=== PATIENT | female | born 2000 | race Hispanic/Latino ===

== ENCOUNTER 2020-11-03 11:51 | Emergency (ER) | payer MEDICAID, OTHER ==
[2020-11-03] MEDS ORDERED: Ibuprofen 200 MG TAB ONE (12:18)
== END 2020-11-03 12:19 | disposition home or self-care (01) ==
LOC: CSHERS 11:51
DX: R11.2 Nausea with vomiting, unspecified (principal); R51.9 Headache, unspecified
CPT/HCPCS: 99283

== ENCOUNTER 2021-06-30 03:15 | Emergency (ER) | payer OTHER, MEDICAID ==
[2021-06-30 04:03] LABS: Pregnancy Test - Urine (BHCG) Negative (Negative)
[2021-06-30 04:06] LABS: Clarity Cloudy (Clear); Glucose, Urine (Dipstick) Normal (Negative); Ketone, Urine Negative (Negative); Nitrite Positive (Negative); Pregu Control Background? CLEAR/WHITE (CLR/WHITE); Pregu Control Bar Appear? YES (CONTROL BAR); Specific Gravity 1.025 (1.002-1.036); Specific Gravity, Urine 1.025 (1.002-1.036)
[2021-06-30 04:08] LABS: Bilirubin Unable to Interpret (Negative); Leukocyte Unable to Interpret (Negative); Protein, Urine (Dipstick) Unable to Interpret mg/dl (Neg-Trace); Urobilinogen UNABLE TO INTERPRET mg/dL (Less than 2)
[2021-06-30 04:09] LABS: Blood, Urine Unable to Interpret (Negative)
[2021-06-30 04:18] LABS: Bacteria/HPF 2+ HPF (None Seen); Squamous Epithelial 21-50 HPF (0-3); WBC/HPF Greater than 50 HPF (0-3)
== END 2021-06-30 03:57 | disposition home or self-care (01) ==
LOC: CSHERS 03:15
DX: R30.0 Dysuria (principal)
CPT/HCPCS: 81003; 81015; 81025; 99283

== ENCOUNTER 2021-07-17 16:54 | Emergency (ER) | payer MEDICAID, OTHER ==
[2021-07-17 18:44] LABS: Syphilis Antibody Index 18.81 S/CO (<1.00 Non-Reactive)
[2021-07-17 18:59] LABS: Syphilis Antibody REACTIVE (Nonreactive)
[2021-07-17] MEDS ORDERED: Bicillin LA 1.2 MILLION UNITS/2 ML SYRINGE ONE (19:01)
== END 2021-07-17 19:30 | disposition home or self-care (01) ==
LOC: CSHERS 16:54
DX: Z20.2 Contact with and (suspected) exposure to infections with a predominantly sexual mode of transmission (principal)
CPT/HCPCS: 86593; 86780; 96372; 99283; J0561

== ENCOUNTER 2021-08-03 04:12 | Emergency (ER) | payer OTHER | END 2021-08-03 05:19 | disposition home or self-care (01) | LOC: CSHERS 04:12 | DX: Z00.00 Encounter for general adult medical examination without abnormal findings (principal) | CPT/HCPCS: 99281 ==

== ENCOUNTER 2021-08-21 20:51 | Emergency (ER) | payer OTHER | END 2021-08-22 00:10 | disposition left against medical advice (07) | LOC: CSHERS 20:51 | DX: Z53.21 Procedure and treatment not carried out due to patient leaving prior to being seen by health care provider (principal) ==

== ENCOUNTER 2021-08-22 16:08 | Emergency (ER) | payer OTHER ==
[2021-08-22 18:15] LABS: Pregnancy Test - Urine (BHCG) POSITIVE (Negative)
[2021-08-22 18:16] LABS: Pregu Control Background? CLEAR/WHITE (CLR/WHITE); Pregu Control Bar Appear? YES (CONTROL BAR)
== END 2021-08-22 18:41 | disposition home or self-care (01) ==
LOC: CSHERS 16:08
DX: O21.9 Vomiting of pregnancy, unspecified (principal); Z3A.00 Weeks of gestation of pregnancy not specified
CPT/HCPCS: 81025; 99284

== ENCOUNTER 2022-02-09 15:28 | Day surgery (SDC) | payer OTHER, SELFPAY ==
[2022-02-09] MEDS ORDERED: hydrALAZINE 20 MG/ML VIAL SLOW IVP PRN (18:03)
== END 2022-02-09 17:40 | disposition home health service (06) ==
LOC: CSHLD/OP 15:28
PROVIDERS: ATTEND Obstetrics & Gynecology
DX: O26.853 Spotting complicating pregnancy, third trimester (principal); O09.33 Supervision of pregnancy with insufficient antenatal care, third trimester; O99.343 Other mental disorders complicating pregnancy, third trimester; F31.9 Bipolar disorder, unspecified; Z3A.31 31 weeks gestation of pregnancy; Z79.899 Other long term (current) drug therapy; Z88.8 Allergy status to other drugs, medicaments and biological substances
CPT/HCPCS: 99282

== ENCOUNTER 2025-05-02 13:35 | Emergency (ER) | payer OTHER ==
[~2025-05-02 13:35] MED LIST: Iopamidol 300 61% 100 ML VIAL FS ONE
[2025-05-02] MEDS ORDERED: Ondansetron PF 4 MG/2 ML Vial ONE (15:41)
[2025-05-02 16:00] LABS: #Basophils Less than 0.03 10x3/uL (0.0-0.2); #Eosinophils 0.11 10x3/uL (0.0-0.5); #Monocytes 0.47 10x3/uL (0.0-1.1); #Neutrophils 4.48 10x3/uL (1.5-8.4); %Basophils 0.2 % (0.0-2.0); %Eosinophils 1.7 % (0.0-6.0); %Lymphocytes 19.4 % (18.0-47.0); %Monocytes 7.5 % (0.0-10.0); %Neutrophils 71.0 % (40.0-75.0); Hematocrit 42.4 % (34.9-44.5); Hemoglobin 14.3 g/dL (12.0-15.5); Mean Corpuscular Hemoglobin 32.4 pg (27.0-33.0); Mean Corpuscular Volume 95.9 fL (81.6-98.3); Platelet Count 216 10x3/uL (150-450); Red Blood Cell (RBC) Count 4.42 10x6/uL (3.90-5.03); White Blood Cell (WBC) Count 6.30 10x3/uL (3.5-10.5)
[2025-05-02 16:01] LABS: Glucose, Urine (Dipstick) Normal (Negative); Leukocyte 25 (Negative); Protein, Urine (Dipstick) 15 mg/dl (Neg-Trace); Specific Gravity, Urine 1.015 (1.005-1.030)
[2025-05-02 16:12] LABS: BHCG - Serum Negative (NEGATIVE); Pregs Control Background? CLEAR/WHITE (CLR/WHITE); Pregs Control Bar Appear? YES (CONTROL BAR)
[2025-05-02 16:23] LABS: ALT (SGPT) 41 U/L (Less than 34); AST (SGOT) 28 U/L (11-34); Albumin 4.7 g/dL (3.1-4.5); Alkaline Phosphatase 93 U/L (40-110); Anion Gap 16 mmol/L (10-20); BUN (Urea Nitrogen) 14 mg/dL (7.0-18.7); Bilirubin, Total 0.8 mg/dL (0.3-1.2); Calc. Creatinine Clearance 0 mL/min (70-130); Calcium 9.2 mg/dL (7.8-10.44); Carbon Dioxide 22 mmol/L (22-29); Chloride 104 mmol/L (98-107); Globulin 3.4 g/dL (2.4-3.5); Glucose 95 mg/dL (70-105); Lipase 14 U/L (8-78); Potassium 4.1 mmol/L (3.5-5.1); Sodium 138 mmol/L (136-145)
[2025-05-02 16:28] LABS: Troponin I Less than 0.010 ng/mL (< 0.028)
[2025-05-02 16:38] LABS: Bacteria/HPF 2+ HPF (None Seen); CAUTI Indications for Culture Pelvic or flank pain; Mucous/LPF 2+ LPF (<2+); RBC/HPF 0-3 HPF (0-3)
[2025-05-02 16:39] LABS: Urine Culture Reflex No No
[2025-05-04 01:00] LABS: Chlamydia by PCR, Vaginal Swab Not Detected (NotDetected); GC by PCR, Vaginal Swab Not Detected (NotDetected)
== END 2025-05-02 18:42 | disposition home or self-care (01) ==
LOC: CSHERS 13:35
DX: N76.0 Acute vaginitis (principal); F32.A Depression, unspecified
CPT/HCPCS: 71275; 74177; 80053; 81001; 83690; 84484; 84703; 85025; 87480; 87491; 87510; 87591; 87660; 93005; 96374; J2405; Q9967